=== PATIENT | male | born 1935 | race Caucasian/White ===

== ENCOUNTER 2018-09-16 14:36 | Emergency (ER) | payer OTHER ==
[2018-09-16 16:53] LABS: Absolute Lymphocytes (CBC) 1.4 K/uL (0.7-4.9); Absolute Monocytes 0.5 K/uL (0.1-1.3); Absolute Neutrophil 2.9 K/uL (1.8-8.0); Basophils % 0.5 % (0-1.3); Lymphocytes % 28.5 % (15.3-44.8); MPV 7.8 fL (7.6-11.3); Monocytes % 11.1 % (3.3-12.3); RBC Red Blood Cell Count 4.48 M/uL (4.33-5.43)
[2018-09-16 16:58] LABS: Magnesium 2.2 mg/dL (1.8-2.4); Potassium 3.5 mmol/L (3.5-5.1)
--- NOTE | 2018-09-16 17:09 | RAD REPORT ---
EXAM DESCRIPTION: CT - Head C Spine Mpr Wo Con - 09/16/2018 4:21 pm CLINICAL HISTORY: Bilateral hand numbness COMPARISON: None. TECHNIQUE: Computed axial tomography of the head and cervical spine was obtained. Sagittal and coronal reconstruction was performed. All CT scans are performed using dose optimization technique as appropriate and may include automated exposure control or mA/KV adjustment according to patient size. FINDINGS: An intracranial bleed is not seen. The ventricles are normal in caliber. An extra-axial fl uid collection is not noted.Fluid within the visualized sinuses and mastoids is not seen A cervical fracture is not visualized. No dislocation is noted. Spondylosis C5-6 results in moderate to marked narrowing of the left neural foramina and mild to mode rate narrowing of the thecal sac. Spondylosis C6-7 results in moderate to marked narrowing of the left and moderate narrowing of the ri ght neural foramina. Moderate narrowing of the thecal sac IMPRESSION: No acute intracranial abnormality is seen. A cervical fracture is not visualized. 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
--- NOTE | 2018-09-16 17:40 | EDPHYS ---
Physician Documentation [facility] Name: Reynaldo Alejandre Age: 83 yrs Sex: Male : 1935 Arrival Date: 09/16/2018 Time: 14:38 Bed 8 Private MD: Venancio Morales V ED Physician Delroy Cosme HPI: 09/16 16:34 This 83 yrs old Male presents to ER via Wheelchair with complaints of rn Weakness, Numbness. 16:34 The patient presents to the emergency department with weakness of the paresthesias of rn the left upper extremity, right upper extremity. The patient presents to the emergency department with weakness of the left upper extremity, right upper extremity. Onset: The symptoms/episode began/occurred 1 month(s) ago. Associated signs and symptoms: Pertinent positives: paresthesias, weakness, Pertinent negatives: altered mental status, fever, neck stiffness. Severity of symptoms: At their worst the symptoms were mild in the emergency department the symptoms are unchanged. Current symptoms:. The patient has not experienced similar symptoms in the past. Reports numbness of both hands and having intermittent weakness of both arms, for 1 month, denies injury, no fever/focal spinal tenderness. Denies bowel or bladder issues, reports mild weakness of legs without paresthesias. Has had back surgery in past. No chest pain/abd pain.. Historical: - Allergies: 14:49 No Known Allergies; aa5 - PMHx: 14:50 Hypertension; Glaucoma; aa5 - PSHx: 14:50 cyst removed from spine; Disc surgery; aa5 14:50 Appendectomy; aa5 - Immunization history:: Flu vaccine is up to date. - Social history:: Smoking status: Patient/guardian denies using tobacco. - Ebola Screening: : No symptoms or risks identified at this time. - Family history:: not pertinent. - Hospitalizations: : No recent hospitalization is reported. ROS: 16:34 Constitutional: Negative for fever, chills, and weight loss, Eyes: Negative for injury, rn pain, redness, and discharge, Neck: Negative for injury, + subjective swelling and soreness of neck Cardiovascular: Negative for chest pain, palpitations, and edema, Respiratory: Negative for shortness of breath, cough, wheezing, and pleuritic chest pain, Abdomen/GI: Negative for abdominal pain, nausea, vomiting, diarrhea, and constipation, MS/Extremity: Negative for injury and deformity, Skin: Negative for injury, rash, and discoloration, Neuro: Negative for headache, tingling, and seizure. Exam: 16:34 Constitutional: This is a well developed, well nourished patient who is awake, alert, rn and in no acute distress. Head/Face: Normocephalic, atraumatic. ENT: MMM Neck: Trachea midline, no thyromegaly or masses palpated, and no cervical lymphadenopathy. Supple, full range of motion without nuchal rigidity, or vertebral point tenderness. No Meningismus. Cardiovascular: No pulse deficits. Respiratory: No increased work of breathing, no retractions or nasal flaring. Skin: Warm, dry with normal turgor. Normal color with no rashes, no lesions, and no evidence of cellulitis. MS/ Extremity: Pulses equal, no cyanosis. Neurovascular intact. Full, normal range of motion. Equal circumference. Neuro: Awake and alert, GCS 15, oriented to person, place, time, and situation. Cranial nerves II-XII grossly intact. Motor strength 5/5 in all extremities. Sensory grossly intact. Cerebellar exam normal. Neg tinel and renny. Vital Signs: 14:50 BP 136 / 68; Pulse 72; Resp 18 S; Temp 97.6(O); Pulse Ox 96% on R/A; Weight 92.99 kg aa5 (R); Height 6 ft. 2 in. (187.96 cm) (R); Pain 0/10; 16:50 BP 152 / 71; Pulse 63; Resp 14; Pulse Ox 97% ; bp 14:50 Body Mass Index 26.32 (92.99 kg, 187.96 cm) aa5 MDM: 15:43 Patient medically screened. rn 17:32 Data reviewed: vital signs, nurses notes, lab test result(s), radiologic studies, CT rn scan, and as a result, I will discharge patient. Counseling: I had a detailed discussion with the patient and/or guardian regarding: the historical points, exam findings, and any diagnostic results supporting the discharge/admit diagnosis, lab results, radiology results, the need for outpatient follow up, to return to the emergency department if symptoms worsen or persist or if there are any questions or concerns that arise at home. Special discussion: I discussed with the patient/guardian in detail that at this point there is no indication for admission to the hospital. It is understood, however, that if the symptoms persist or worsen the patient needs to return immediately for re-evaluation. Based on the history and exam findings, there is no indication for further emergent testing or inpatient evaluation. I discussed with the patient/guardian the need to see the back specialist for further evaluation of the symptoms. 17:33 ED course: CT shows spondylosis of cervical spine at c6/c7 with narrowing of canal and rn foramina, likely causing his symptoms, slow progression, no acute changes, has seen Dr. Beckham for other back surgery, as is going to f/u with Dr. Beckham, has pcp f/u in a few days, and needs outpt MRI. Will give steroids for time being.. 09/16 16:03 Order name: CBC with Diff; Complete Time: 16:59 rn 09/16 16:03 Order name: Basic Metabolic Panel; Complete Time: 16:59 rn 09/16 16:03 Order name: CT Head C Spine; Complete Time: 17:18 rn 09/16 16:03 Order name: IV Start; Complete Time: 16:49 rn 09/16 16:03 Order name: Magnesium; Complete Time: 16:59 rn 09/16 16:03 Order name: EKG; Complete Time: 16:05 rn 09/16 16:03 Order name: EKG - Nurse/Tech; Complete Time: 16:05 rn Administered Medications: No medications were administered Disposition: 09/16/18 17:41 Discharged to Home. Impression: Radiculopathy, cervical region. - Condition is Stable. - Discharge Instructions: Cervical Radiculopathy. - Prescriptions for Medrol (Nikhil) 4 mg Oral Tablets, Dose Pack - take 1 tablet by ORAL route as directed - follow package instructions; 1 packet. - Medication Reconciliation Form, Thank You Letter, Antibiotic Education, Prescription Opioid Use form. - Follow up: Venancio Morales MD; When: As needed; Reason: Recheck today's complaints, Re-evaluation by your physician. Follow up: Jose Luis Beckham MD; When: As needed; Reason: Recheck today's complaints, Re-evaluation by your physician. - Problem is an ongoing problem. - Symptoms are unchanged. Signatures: Dispatcher [employer] EDMS Delroy Cosme MD MD rn Barlow, Salima, RN RN aa5 Jeronimo Mejia RN RN bp Corrections: (The following items were deleted from the chart) 18:10 17:41 09/16/2018 17:41 Discharged to Home. Impression: Radiculopathy, cervical region. bp Condition is Stable. Forms are Medication Reconciliation Form, Thank You Letter, Antibiotic Education, Prescription Opioid Use. Follow up: Venancio Morales; When: As needed; Reason: Recheck today's complaints, Re-evaluation by your physician. Follow up: Jose Luis Beckham; When: As needed; Reason: Recheck today's complaints, Re-evaluation by your physician. Problem is an ongoing problem. Symptoms are unchanged. rn
--- NOTE | 2018-09-16 17:40 | ER ---
Nurse's Notes [facility] Name: Reynaldo Alejandre Age: 83 yrs Sex: Male : 1935 Arrival Date: 09/16/2018 Time: 14:38 Bed 8 Private MD: Venancio Morales V Diagnosis: Radiculopathy, cervical region Presentation: 09/16 14:47 Presenting complaint: Patient states: "one day I just woke up with both of my shoulders aa5 and my neck feeling sore and the palms of my hands feeling numb". Pt reports symptoms began 1 month ago. Pt also c/o generalized weakness. Transition of care: patient was not received from another setting of care. Onset of symptoms was August 2018. Risk Assessment: Do you want to hurt yourself or someone else? Patient reports no desire to harm self or others. Initial Sepsis Screen: Does the patient meet any 2 criteria? No. Patient's initial sepsis screen is negative. Does the patient have a suspected source of infection? No. Patient's initial sepsis screen is negative. Care prior to arrival: None. 14:47 Method Of Arrival: Wheelchair aa5 14:47 Acuity: CHONG 3 aa5 Triage Assessment: 15:00 General: Appears in no apparent distress. comfortable, Behavior is cooperative, bp appropriate for age, anxious. Pain: Complains of pain in back of head and back of neck. EENT: No deficits noted. Neuro: Level of Consciousness is awake, alert, obeys commands, Oriented to person, place, time, situation, Appropriate for age Strategic Manager are equal bilaterally Speech is normal, Facial symmetry appears normal. Cardiovascular: No deficits noted. Respiratory: Airway is patent Respiratory effort is even, unlabored, Respiratory pattern is regular, symmetrical. GI: No signs and/or symptoms were reported involving the gastrointestinal system. : No signs and/or symptoms were reported regarding the genitourinary system. Derm: No deficits noted. Musculoskeletal: Circulation, motion, and sensation intact. Range of motion: intact in all extremities. Historical: - Allergies: 14:49 No Known Allergies; aa5 - PMHx: 14:50 Hypertension; Glaucoma; aa5 - PSHx: 14:50 cyst removed from spine; Disc surgery; aa5 14:50 Appendectomy; aa5 - Immunization history:: Flu vaccine is up to date. - Social history:: Smoking status: Patient/guardian denies using tobacco. - Ebola Screening: : No symptoms or risks identified at this time. - Family history:: not pertinent. - Hospitalizations: : No recent hospitalization is reported. Screenin:48 Abuse screen: Denies threats or abuse. Nutritional screening: No deficits noted. tw2 Tuberculosis screening: No symptoms or risk factors identified. Fall Risk Secondary diagnosis (15 points) impaired mobility. Assessment: 15:00 General: SEE TRIAGE NOTE. bp 16:50 Reassessment: ALL CURRENT ORDERS COMPLETED, RESULTS PENDING. bp Vital Signs: 14:50 BP 136 / 68; Pulse 72; Resp 18 S; Temp 97.6(O); Pulse Ox 96% on R/A; Weight 92.99 kg aa5 (R); Height 6 ft. 2 in. (187.96 cm) (R); Pain 0/10; 16:50 BP 152 / 71; Pulse 63; Resp 14; Pulse Ox 97% ; bp 14:50 Body Mass Index 26.32 (92.99 kg, 187.96 cm) aa5 ED Course: 14:38 Patient arrived in ED. mr 14:38 Venancio Morales MD is Private Physician. mr 14:47 Arm band placed on. aa5 14:48 Triage completed. aa5 15:34 Bed in low position. Call light in reach. Adult w/ patient. gambling monitor on. Pulse tw2 ox on. NIBP on. 15:40 Jeronimo Mejia, ESTEFANY is Primary Nurse. bp 15:43 Delroy Cosme MD is Attending Physician. rn 16:23 CT Head C Spine In Process Unspecified. EDMS 16:30 Inserted saline lock: 20 gauge in right antecubital area, using aseptic technique. bp Blood collected. 16:33 EKG done, by turbine technician. reviewed by Delroy Cosme MD. sm3 17:40 Venancio Morales MD is Referral Physician. rn 17:40 Jose Luis Beckham MD is Referral Physician. rn Administered Medications: No medications were administered Outcome: 17:41 Discharge ordered by . rn 18:10 Patient left the ED. bp Signatures: Dispatcher [employer] EDOK Radha Sifuentes mr Delroy Cosme MD MD rn Calderon, Audri, RN RN aa5 Kim Hollis RN RN tw2 Jeronimo Mejia, RN RN bp Brigid Klein 3
--- NOTE | 2018-09-17 09:03 | EKG ---
Test Date: 2018-09-16 Test Time: 16:30:08 Clinical Program Director: BONNY MEASUREMENT RESULTS: Intervals: Rate: 64 GA: 178 QRSD: 96 QT: 418 QTc: 431 [place]: P: 67 GA: 178 QRS: 44 T: 11 INTERPRETIVE STATEMENTS: Normal sinus rhythm T wave abnormality, consider inferior ischemia Abnormal ECG No previous ECG available for comparison Electronically Signed On 09-17-18 09:00:50 CDT by Stalin Lopez
== END 2018-09-16 18:10 | disposition home or self-care (01) ==
LOC: ER 14:36
DX: M47.22 Other spondylosis with radiculopathy, cervical region (principal); M48.02 Spinal stenosis, cervical region; I10 Essential (primary) hypertension
CPT/HCPCS: 36415; 70450; 72125; 80048; 83735; 85025; 93005; 99284